=== PATIENT | male | born 1955 | race Caucasian/White ===

== ENCOUNTER 2022-07-07 09:33 | Emergency (ER) | payer OTHER ==
[2022-07-07 09:40] VITALS: RESP 20; TEMP 98.5; BMI 26.4
[2022-07-07] MEDS ORDERED: ACETAMINOPHEN 1000 MG/100 ML BAG IVPB ONE (09:53)
[2022-07-07] MEDS ORDERED: SODIUM CHLORIDE 0.9% 1000 ML INFUS.BAG IV ONE ×2 (09:53→10:36)
[2022-07-07] MEDS ORDERED: FAMOTIDINE 20 MG/50 ML IVPB 20 MG/50 ML MG IVPB ONE ×2 (09:53→10:12)
[2022-07-07] MEDS ORDERED: ONDANSETRON 4 MG/2 ML VIAL IVPUSH ONE (09:53)
[2022-07-07] MEDS ORDERED: ONDANSETRON 4 MG/2 ML VIAL ONE (10:04)
[2022-07-07] MEDS ORDERED: ACETAMINOPHEN INJECTION 100 ML IVPB ONE (10:04)
[2022-07-07 10:23] LABS: HEMATOCRIT 42.5 % (35.4-49); HEMOGLOBIN 14.9 G/dL (11.7-16.9); MCHC 35.1 g/dl (32.0-35.9); MEAN CELL VOLUME 91.2 fl (80-96); PLATELET COUNT 190.8 10^3/uL (134-434); RBC 4.66 10^6/uL (4.00-5.60); RDW 14.7 % (11.9-15.9); WHITE BLOOD COUNT 6.9 10^3/uL (4.0-10.8)
[2022-07-07 10:33] LABS: ALBUMIN 3.9 g/dl (3.4-5.0); CALCIUM 9.1 mg/dl (8.5-10); CREATININE 1.3 mg/dl (0.55-1.3); TOT PROT 6.4 g/dl (6.4-8.2)
[2022-07-07] MEDS ORDERED: morphine CARPU-JECT 2 MG/1 ML DISP.SYRIN IVPUSH ONE (10:37)
[2022-07-07 10:48] LABS: PLATELET ESTIMATE ADEQUATE
[2022-07-07] MEDS ORDERED: morphine SULFATE 4 MG/ML VIAL ONE (11:39)
[2022-07-07 13:16] VITALS: BP 137/84; PULSE 89
[2022-07-07] MEDS ORDERED: KETOROLAC TROMETHAMINE 15 MG/ML VIAL IVPUSH ONE (13:21)
[2022-07-07] MEDS ORDERED: TAMSULOSIN HCL 0.4 MG CAP PO ONE (13:21)
[2022-07-07] MEDS ORDERED: CEPHALEXIN MONOHYDRATE 500 MG CAPSULE (UD) PO ONE (13:21)
[2022-07-07] MEDS ORDERED: TAMSULOSIN HCL 0.4 MG CAP ONE (13:22)
[2022-07-07] MEDS ORDERED: CEPHALEXIN MONOHYDRATE 500 MG CAPSULE (UD) ONE (13:22)
[2022-07-07] MEDS ORDERED: KETOROLAC TROMETHAMINE 15 MG/ML VIAL ONE (13:22)
== END 2022-07-07 13:36 | disposition home or self-care (01) ==
LOC: FER 09:33
PROC: 3E0333Z Introduction of Anti-inflammatory into Peripheral Vein, Percutaneous Approach (ICD-10-PCS; principal; 2022-07-07)
PROC: 3E033GC Introduction of Other Therapeutic Substance into Peripheral Vein, Percutaneous Approach (ICD-10-PCS; 2022-07-07)
DX: N20.0 Calculus of kidney (principal)
CPT/HCPCS: 36415; 74177-TC; 80053; 81003; 81015; 85027; 99285-25

== ENCOUNTER 2024-03-04 09:11 | Emergency (ER) | payer OTHER ==
[2024-03-04 09:53] VITALS: RESP 18; BMI 24.7
[2024-03-04] MEDS ORDERED: ONDANSETRON 4 MG/2 ML VIAL ONE (10:28)
[2024-03-04] MEDS ORDERED: IBUPROFEN 400 MG TABLET (FP) PO ONE (10:28)
[2024-03-04] MEDS: IBUPROFEN 400 MG TABLET (FP) PO ONE (10:33)
[2024-03-04] MEDS: ONDANSETRON 4 MG/2 ML VIAL IVPUSH ONE (10:33)
[2024-03-04] MEDS: SODIUM CHLORIDE 1,000 ML IV STA (10:33)
[2024-03-04 10:36] LABS: HEMATOCRIT 46.2 % (35.4-49); HEMOGLOBIN 14.9 G/dL (11.7-16.9); MCH 29.8 pg (25.7-33.7); MCHC 32.1 g/dl (32.0-35.9); MEAN CELL VOLUME 92.5 fl (80-96); MEAN PLT VOLUME 8.6 fl (7.5-11.1); PLATELET COUNT 168.5 10^3/uL (134-434); RBC 4.99 10^6/uL (4.00-5.60); RDW 14.4 % (11.9-15.9); WHITE BLOOD COUNT 6.9 10^3/uL (4.0-10.8)
[2024-03-04 10:46] LABS: PLATELET ESTIMATE ADEQUATE
[2024-03-04 10:55] LABS: ALBUMIN 4.3 g/dl (3.4-5.0); BILIRUBIN,TOTAL 1.2 mg/dl (0.2-1); CALCIUM 9.8 mg/dl (8.5-10.1); CREATININE 1.7 mg/dl (0.6-1.3); POTASSIUM 3.8 mmol/L (3.5-5.1); TOT PROT 6.8 g/dl (6.4-8.2)
[2024-03-04 14:57] LABS: ALBUMIN 4.1 g/dl (3.4-5.0); BILIRUBIN,TOTAL 1.2 mg/dl (0.2-1); CALCIUM 9.5 mg/dl (8.5-10.1); CREATININE 1.6 mg/dl (0.6-1.3); TOT PROT 6.5 g/dl (6.4-8.2)
[2024-03-04 15:21] VITALS: BP 140/80; PULSE 74; TEMP 98.6
== END 2024-03-04 15:23 | disposition home or self-care (01) ==
LOC: FER 09:11
PROC: 3E033GC Introduction of Other Therapeutic Substance into Peripheral Vein, Percutaneous Approach (ICD-10-PCS; principal; 2024-03-04)
PROC: 3E0337Z Introduction of Electrolytic and Water Balance Substance into Peripheral Vein, Percutaneous Approach (ICD-10-PCS; 2024-03-04)
DX: R10.9 Unspecified abdominal pain (principal); R11.0 Nausea; R14.0 Abdominal distension (gaseous); R30.0 Dysuria
CPT/HCPCS: 36415; 74176-TC; 80053; 81003; 81015; 85025; 87086; 99284-25